=== PATIENT | female | born 1950 | race Caucasian/White ===

== ENCOUNTER 2017-07-02 08:55 | Emergency (ER) | payer MEDICARE, OTHER ==
[~2017-07-02] VITALS: Ht 157.5 cm; Wt 65.0 kg
[2017-07-02 08:57] VITALS: BP 166/77; PULSE 80; RESP 14; TEMP 98.4; O2SAT 96
[2017-07-02] MEDS ORDERED: CLON1TAB PO (09:06)
[2017-07-02] MEDS ORDERED: NITR100C4 PO (09:06)
[2017-07-02] MEDS ORDERED: ATOR80TA45 PO (09:06)
[2017-07-02] MEDS ORDERED: LISI10TA PO (09:06)
--- NOTE | 2017-07-02 09:21 | PD ---
HPI Chief Complaint: Musculoskeletal Complaint Time Seen by Provider: 09:11 Travel History International Travel<30 days: No Contact w/Intl Traveler<30days: No Traveled to known affect area: No History of Present Illness HPI 66-year-old female presents to emergency department for evaluation left knee pain 2 weeks. Patient denies any injury. The pain is constant, aching, moderate in severity. She Tells me that her neighbor told her it's likely arthritis, but the patient states that she has never had arthritis before. She is able to ambulate. Pain is not exacerbated with this however it is exacerbated with a full flexion of the knee. Patient does not have any limitations in range of motion. Denies any alterations in sensation. She has not been recently ill. She has no fever or chills. She has no history of gout. She has no other symptoms to report. PFSH Past Medical History High Cholesterol: Yes Hypertension: Yes Influenza Vaccination: Yes Past Surgical History Tonsillectomy: Yes Social History Alcohol Use: No Tobacco Use: No Substance Use: No Allergies-Medications (Allergen,Severity, Reaction): Coded Allergies: No Known Allergies (Unverified , 07/02/17) Reported Meds & Prescriptions Reported Meds & Active Scripts Active Naproxen 500 Mg Tab 500 Mg PO BID PRN Reported Clonazepam 1 Mg Tab 1 Mg PO HS Lisinopril-Hctz 10-12.5 Mg Tab 1 Tab PO DAILY Nitrofurantoin Monohydrate Macrocrystals (Nitrofurantoin Monoh/Nitrofur Macro) 100 Mg Cap 100 Mg PO BID Atorvastatin (Atorvastatin Calcium) 80 Mg Tab 80 Mg PO HS Review of Systems Except as stated in HPI: all other systems reviewed are Neg Physical Exam Narrative GENERAL: Well-nourished, well-developed female patient, ambulatory with a nonantalgic gait, no acute distress. SKIN: Focused skin assessment warm/dry. HEAD: Normocephalic. EYES: No scleral icterus. No injection or drainage. NECK: Supple, trachea midline. No JVD or lymphadenopathy. CARDIOVASCULAR: Regular rate and rhythm without murmurs, gallops, or rubs. RESPIRATORY: Breath sounds equal bilaterally. No accessory muscle use. MUSCULOSKELETAL: No cyanosis, or edema. Erythema. Patient has full flexion- extension of the left knee. Distal pulses are palpable. Cap refill is within normal limits. Dashawn's exam is negative and there is no laxity with valgus or varus stress. She does have tenderness elicited palpation just lateral to the patella. No crepitus. BACK: Nontender without obvious deformity. No CVA tenderness. Data Data Last Documented VS Vital Signs Date Time Temp Pulse Resp B/P (MAP) Pulse Ox O2 Delivery O2 Flow Rate FiO2 07/02/17 10:52 07/02/17 08:57 98.4 80 14 96 Orders Orders Knee, Complete (4vws) (07/02/17 ) Ed Discharge Order (07/02/17 10:02) MDM Medical Decision Making Medical Screen Exam Complete: Yes Emergency Medical Condition: Yes Medical Record Reviewed: Yes Differential Diagnosis Arthritic pain versus knee effusion versus bursitis versus unlikely septic joint Narrative Course 66-year-old female presents to emergency department for evaluation of left knee pain. Patient appears well. There is tenderness elicited palpation lateral to the patella of the affected knee. X-ray imaging shows a small joint effusion. Counseled on care she is encouraged to follow with [facility] specialist and her primary care provider. She agrees to return immediately with any acute worsening symptoms. Diagnosis Primary Impression: Knee pain, left Qualified Codes: M25.562 - Pain in left knee Additional Impression: Joint effusion of knee Qualified Codes: M25.462 - Effusion, left knee Referrals: Primary Care Physician Patient Instructions: General Instructions, Osteoarthritis (ED) Additional Instructions: Mitchell wrap for compression Elevate to reduce pain and swelling Follow-up within primary care provider Seek orthopedic evaluation if symptoms persist Return immediately with any acute worsening of symptoms Med/Other Pt SpecificInfo: Prescription(s) given Scripts Naproxen (Naproxen) 500 Mg Tab 500 MG PO BID Y for PAIN SCALE 1 TO 10, #30 TAB 0 Refills Prov: NaveedElba MCCOLLUM 07/02/17 Disposition: 01 DISCHARGE HOME Condition: Stable Elba Lucio Jul 02, 2017 09:21
--- NOTE | 2017-07-02 09:58 | RADRPT ---
EXAM DATE/TIME: 07/02/2017 09:31 [facility] COMPARISON: No previous studies available for comparison. INDICATIONS : Left knee pain, progressively getting worse with no injury. MEDICAL HISTORY : None. SURGICAL HISTORY : None. ENCOUNTER: Initial ACUITY: 2 weeks PAIN SCORE: 8/10 LOCATION: Left lateral knee. FINDINGS: Degenerative changes medial and lateral compartment. Mild degenerative changes patellofemoral compar tment. Trace joint effusion. No fracture CONCLUSION: Trace joint effusion. No fracture no Chandrakant Oconnor MD FACR on July 02, 2017 at 9:52 Board Certified Radiologist. This report was verified electronically.
[2017-07-02] MEDS ORDERED: NAPR500T2 PO (10:05)
== END 2017-07-02 10:52 | disposition home or self-care (01) ==
LOC: NEPD 08:55
DX: M25.562 Pain in left knee (principal); M25.462 Effusion, left knee; E78.00 Pure hypercholesterolemia, unspecified; I10 Essential (primary) hypertension; Z79.899 Other long term (current) drug therapy
CPT/HCPCS: 73564; 99283